=== PATIENT | female | born 1965 | race Caucasian/White ===

== ENCOUNTER 2018-08-18 13:43 | Emergency (ER) | payer OTHER ==
[~2018-08-18] VITALS: Ht 157.5 cm; Wt 71.5 kg
[~2018-08-18 13:43] MED LIST: BACTRIM DS TAB1 EACH PO; PREDNISONE50 MG PO
[2018-08-18] MEDS ORDERED: BLACK COHOSH40 M1 PO (14:04)
[2018-08-18] MEDS ORDERED: CLEOCIN HCL150 MG PO (15:30)
[2018-08-18] MEDS ORDERED: CLEOCIN HCL300 MG PO (15:33)
[2018-08-18] MEDS ORDERED: IBUPROFEN 600600 M1 PO (15:34)
[2018-08-18 16:00] VITALS: BP 130/60
== END 2018-08-18 16:01 | disposition home or self-care (01) ==
LOC: M.ERS 13:43
DX: K11.20 Sialoadenitis, unspecified (principal); J01.00 Acute maxillary sinusitis, unspecified; F17.200 Nicotine dependence, unspecified, uncomplicated; Z98.890 Other specified postprocedural states; Z91.09 Other allergy status, other than to drugs and biological substances

== ENCOUNTER 2019-07-01 13:13 | Inpatient (IN) | payer OTHER ==
[~2019-07-01] VITALS: Ht 157.5 cm; Wt 63.0 kg
--- NOTE | ~2019-07-01 | CON ---
[address] [address] CONSULTATION Name: SUZANNE THOMASN Room: [address] IN M.R.#: [id number] Admission: 07/01/19 Attend Phys: Cristiano Hedrick MD Discharge: Date of : 69 Report #: [id number] THIS REPORT FOR: //name// cc: JIMENA Hoyos family physician/PCP JIMENA Hoyos family physician/PCP ~ THIS REPORT FOR: //name// CC: Cristiano Hedrick [facility] physician/PCP Cristhian Segovia DO DICTATED BY: Lyly Cristobal [facility] REASON FOR CONSULTATION: Transaminitis and duodenitis. Please note at the time of this dictation, the patient was seen and physically examined by myself. HISTORY OF PRESENT ILLNESS: This is a 54-year-old female who presented to the Emergency Room with having some epigastric pain and also chest discomfort that started 2 hours prior to her arrival here, she states it is worse when she is not having a bowel movement. She does have issues with constipation and she has not had a bowel movement in about 4 days. She does not normally have a bowel movement, but every 1-1/2 weeks and has ongoing issues with her bowels. She denies taking any softeners, laxatives or any other interventions. She does state she has had some issues with some reflux, but does not take anything for that. She has never had an EGD or colonoscopy to evaluate that. She denies taking any NSAIDs on a regular basis. The patient states she has had some nausea, but no vomiting and just mainly her upper abdominal discomfort that she has had. ALLERGIES: CONTRAST DYE, POISON YO. MEDICATIONS: From home is none. PAST MEDICAL HISTORY: Contact dermatitis. PAST SURGICAL HISTORY: Tubal ligation and . FAMILY HISTORY: Negative for any GI or female cancers. SOCIAL HISTORY: She does smoke tobacco. Denies any alcohol use and she does smoke marijuana on a regular basis. REVIEW OF SYSTEMS: Twelve-point review of systems is essentially negative except what is mentioned in the HPI. PHYSICAL EXAMINATION: VITAL SIGNS: Temperature 36.6, pulse 87, respirations 18, blood pressure 96/50. HEART: Regular rate and rhythm. LUNGS: Diminished. ABDOMEN: Soft, positive bowel sounds in all 4 quadrants with epigastric tenderness noted to palpation. LABORATORY DATA: Hemoglobin on admission was 12.1, she is down to 9.2; white count is 6.8; platelets 234. GFR is 75. PT 10.7, INR is 1. Total bilirubin is 3, alkaline phosphatase 3251, ALT 158, AST is 115. Lipase is 77. CT shows a 1.1 cm mass lateral to the right lobe. No ductal dilatation noted of the gallbladder and it is contracted. There is circumferential wall thickening of the duodenum and the proximal jejunum. Chest CTA demonstrates innumerable indeterminate subpleural pulmonary nodules located within the lower and upper lobes and there are subcarinal lymph nodes that are noted with generalized thickening of the adrenal glands as well. IMPRESSION: 1. Chest pain. 2. Abdominal pain, epigastric. 3. Abnormal CT, circumferential wall thickening of the duodenum and jejunum. 4. Constipation. 5. Anemia. 6. History of regular THC use. 7. Tobacco use. PLAN: 1. EGD today. 2. Continue her Protonix. 3. Ultrasound of the abdomen to further evaluate her liver. 4. Labs, acute hepatitis panel, GGTP, AFP, JOI, ASMA, AMA. 5. The patient will likely need a colonoscopy during this hospitalization for further evaluation of her bowels. 6. Further recommendations to be made once Dr. Goodwin has reviewed the above and performed the EGD. Thank you for allowing us to participate in this patient's care. Please do not hesitate to call with any questions in regard to this consult. By: [id number] Goodwin MD /kylie
--- NOTE | ~2019-07-01 | EKG ---
[place] [address] ELECTROCARDIOGRAM REPORT Name: SUZANNE THOMAS MIMI Room: [facility]#: [id number] Admission: 07/01/19 Attend Phys: Discharge: Date of : 69 Date of Service: 07/01/19 1318 Report #: [id number] THIS REPORT FOR: cc: JIMENA - No family physician/PCP JIMENA - No family physician/PCP Roel Sevilla MD ~ THIS REPORT FOR: //name// [facility] ED Test Date: 2019-07-01 Test Time: 13:18:10 Pat Name: SUZANNE THOMAS Department: Room: Gender: F Audit Senior Associate: : 1965 Requested By: Suresh Varma Order Number: [id number] MD: Measurements Intervals [place] Rate: 109 P: 70 FL: 130 QRS: 76 QRSD: 79 T: 68 QT: 321 QTc: 433 Interpretive Statements Sinus tachycardia Probable anteroseptal infarct, old No previous ECG available for comparison [email or web address] By: 1318 1318 Epiphany Epiphany, /EPI
--- NOTE | ~2019-07-01 | EKG ---
[place] [address] ELECTROCARDIOGRAM REPORT Name: SUZANNE THOMAS MIMI Room: [address] ADM IN M.R.#: [id number] Admission: 07/01/19 Attend Phys: Cristiano Hedrick, Discharge: Date of : 69 Date of Service: 07/04/19 0538 Report #: [id number] THIS REPORT FOR: cc: JIMENA - No family physician/PCP FAM - No family physician/PCP Roel Sevilla MD ~ THIS REPORT FOR: //name// [facility] Test Date: 2019-07-04 Test Time: 05:38:47 Pat Name: SUZANNE THOMAS Department: Room: [address] Gender: F Bevel Polisher: JESSE : 1965 Requested By: Magdiel Denson Order Number: [id number] Reading MD: Measurements Intervals [place] Rate: 68 P: 72 NC: 165 QRS: 65 QRSD: 93 T: 37 QT: 411 QTc: 438 Interpretive Statements Sinus rhythm Low voltage, extremity leads Compared to ECG 07/01/2019 13:18:10 Low QRS voltage now present Sinus tachycardia no longer present [email or web address] By: 0538 0538 Epiphany Epiphany, /DALIA
--- NOTE | ~2019-07-01 | PROC ---
[address] [address] PROCEDURE REPORT Name: SUZANNE THOMAS Room: [address] IN M.R.#: [id number] Admission: 07/01/19 Attend Phys: Cristiano Hedrick MD Discharge: Date of : 69 Report #: [id number] THIS REPORT FOR: //name// cc: FAM - No family physician/PCP FAM - No family physician/PCP ~ THIS REPORT FOR: //name// For GI report, please see the Provation report in Perceptive 7 content. By: 1233Medical Records Staff BRIAN /SHABNAM
[~2019-07-01 13:13] MED LIST changes: +BLACK COHOSH40 M1 PO; +CLEOCIN HCL150 MG PO; +CLEOCIN HCL300 MG PO; +IBUPROFEN 600600 M1 PO
[2019-07-01 13:21] VITALS: BP 126/75
[2019-07-01 13:39] LABS: HEMOGLOBIN 12.1 gm/dL (12.0-15.0)
[2019-07-01 13:41] LABS: HEMATOCRIT 35.4 % (37.0-47.0); MCH 29.4 pg (26.0-34.0); MCHC 34.2 g/dL (28.0-37.0); MCV 86.1 fL (80.0-100.0); MPV 8.4 fl. (7.2-11.1); NUCLEATED RBCS 0 /100WBC; PLATELET COUNT* 298 thou/uL (150-400); RBC 4.11 mil/uL (4.20-5.00); RDW-CV 14.5 % (10.5-14.5); WBC 9.4 thou/uL (4.0-11.0)
[2019-07-01 13:49] LABS: ANION GAP 9 mmol/L (7-16); BUN 20 mg/dL (7-18); CALCIUM 8.8 mg/dL (8.5-10.1); CHLORIDE 98 mmol/L (98-107); CO2 27 mmol/L (21-32); CREATININE 0.9 mg/dL (0.6-1.3); GLUCOSE 121 mg/dL (70-99); SODIUM 134 mmol/L (136-145)
[2019-07-01 13:50] LABS: APTT 37.9 Seconds (25.0-31.3); PROTIME 10.7 Seconds (9.20-11.50)
[2019-07-01 14:03] LABS: ALBUMIN 2.3 g/dL (3.4-5.0); CK-MB MASS < 0.5 ng/mL (<0.5-3.6); LIPASE 77 U/L (73-393); MAGNESIUM 1.9 mg/dL (1.8-2.4); NT-PRO BRAIN NAT PEPTIDE 284 pg/mL (<300); SGOT 115 U/L (15-37); SGPT 158 U/L (30-65); TOTAL PROTEIN 7.6 g/dL (6.4-8.2)
[2019-07-01 14:09] LABS: ABSOLUTE LYMPHOCYTES 0.5 thou/uL (0.8-5.3); ABSOLUTE MONOCYTES 0.2 thou/uL (0.0-1.2); ABSOLUTE NEUTROPHILS 8.7 thou/uL (1.6-8.1); PLATELET ESTIMATE ADEQUATE
[2019-07-01 14:14] LABS: ALKALINE PHOSPHATASE 3251 U/L (46-116)
--- NOTE | 2019-07-01 14:46 | NUR ---
DANYA TURK ) NOTIFIED UPON PT RETURN FROM CT. PT CONNECTED TO MONITOR
[2019-07-01 19:45] VITALS: BP 95/45
[2019-07-01 20:20] VITALS: BP 83/41
[2019-07-01 22:10] VITALS: BP 85/41
[2019-07-02] VITALS: BP 91/48
[2019-07-02 04:00] VITALS: BP 96/50
[2019-07-02 06:03] LABS: URINE BLOOD 1+ (Negative); URINE CLARITY CLEAR; URINE COLOR YELLOW; URINE GLUCOSE-RANDOM NEGATIVE (Negative); URINE KETONES NEGATIVE (Negative); URINE LEUKOCYTES-REFLEX NEGATIVE (Negative); URINE NITRITE-REFLEX NEGATIVE (Negative); URINE PROTEIN TRACE (Negative)
[2019-07-02 06:06] LABS: ICTOTEST (BILI CONFIRMATORY) Negative (Negative); URINE BILIRUBIN 1+ (Negative)
--- NOTE | 2019-07-02 06:21 | NUR ---
PATIENT PARTIALLY PROGRESSING TOWARDS GOALS: PATIENT DENIES PAIN AND DISCOMFORT. URINE SAMPLE COLLECTED AND SENT TO LAB, REFER TO RESULTS. PATIENT ABLE TO SLEEP THROUGHOUT SHIFT. PATIENT NPO FOR GI CONSULT THIS AM. VERBALIZES UNDERSTANDING. CALL LIGHT WITHIN REACH
[2019-07-02 06:28] LABS: BACTERIA-REFLEX 1-9 Few /HPF (None Seen); CASTS None Seen /LPF (None Seen); CRYSTALS None Seen /LPF (None Seen); MUCUS None Seen strn/LPF (None Seen); SQUAMOUS 4-10 Moderate /LPF (0-3); URINE RBC 3-10 Few /HPF (0-2); URINE WBC-REFLEX 0-5 Rare /HPF (0-5)
[2019-07-02 06:40] LABS: AMP/METHAMP POSITIVE (Negative); BARBITURATES Negative (Negative); BENZODIAZEPINES Negative (Negative); COCAINE Negative (Negative); METHADONE Negative (Negative); OPIATES Negative (Negative); PCP Negative (Negative); THC Negative (Negative)
[2019-07-02 06:49] LABS: HEMATOCRIT 26.8 % (37.0-47.0); MCH 29.7 pg (26.0-34.0); MPV 8.7 fl. (7.2-11.1); NUCLEATED RBCS 0 /100WBC; WBC 6.8 thou/uL (4.0-11.0)
[2019-07-02 06:51] LABS: MCHC 34.2 g/dL (28.0-37.0); MCV 86.8 fL (80.0-100.0); PLATELET COUNT* 234 thou/uL (150-400); RBC 3.09 mil/uL (4.20-5.00); RDW-CV 14.6 % (10.5-14.5)
[2019-07-02 06:52] LABS: HEMOGLOBIN 9.2 gm/dL (12.0-15.0)
[2019-07-02 07:21] LABS: CALCIUM 7.4 mg/dL (8.5-10.1); CREATININE 0.8 mg/dL (0.6-1.3); POTASSIUM 4.1 mmol/L (3.5-5.1)
[2019-07-02 07:30] VITALS: BP 96/46
[2019-07-02 08:40] LABS: ABSOLUTE BASOPHILS 0.1 thou/uL (0.0-0.2); ABSOLUTE EOSINOPHILS 0.1 thou/uL (0.0-0.7); ABSOLUTE MONOCYTES 0.4 thou/uL (0.0-1.2); ABSOLUTE NEUTROPHILS 5.2 thou/uL (1.6-8.1); PLATELET ESTIMATE ADEQUATE
--- NOTE | 2019-07-02 10:57 | NUR ---
Pt out of the room, will f/u later
[2019-07-02 16:00] VITALS: BP 96/50
[2019-07-02 19:40] VITALS: BP 97/55
[2019-07-03 00:11] VITALS: BP 119/59
[2019-07-03 04:31] VITALS: BP 132/77
[2019-07-03 05:21] LABS: ABSOLUTE EOSINOPHILS 0.1 thou/uL (0.0-0.7); HEMOGLOBIN 9.4 gm/dL (12.0-15.0); WBC 5.8 thou/uL (4.0-11.0)
[2019-07-03 05:23] LABS: ABSOLUTE LYMPHOCYTES 3.2 thou/uL (0.8-5.3); ABSOLUTE MONOCYTES 0.4 thou/uL (0.0-1.2); ABSOLUTE NEUTROPHILS 2.1 thou/uL (1.6-8.1); BASOPHILS 0.3 %; EOSINOPHILS 1.4 %; HEMATOCRIT 27.2 % (37.0-47.0); LYMPHOCYTES 55.3 %; MCH 29.8 pg (26.0-34.0); MCHC 34.6 g/dL (28.0-37.0); MCV 86.2 fL (80.0-100.0); MONOCYTES 7.1 %; MPV 8.7 fl. (7.2-11.1); NUCLEATED RBCS 0 /100WBC; PLATELET COUNT* 264 thou/uL (150-400); POLYS 35.9 %; RBC 3.16 mil/uL (4.20-5.00); RDW-CV 14.7 % (10.5-14.5)
[2019-07-03 05:45] LABS: ALBUMIN 1.6 g/dL (3.4-5.0); CALCIUM 8.1 mg/dL (8.5-10.1); CREATININE 0.7 mg/dL (0.6-1.3); POTASSIUM 3.7 mmol/L (3.5-5.1); TOTAL BILIRUBIN 1.4 mg/dL (<0.1-1.0)
--- NOTE | 2019-07-03 06:21 | NUR ---
ASSUMED CARE OF PATIENT AT APPROX. 1930. ALERT AND ORIENTED X4. ASSESSMENT COMPLETED AND CHARTED. VSS ON ROOM AIR. FLUIDS AND ANTIBIOTICS INFUSED ORDERED. BOWEL PREP THROUGHOUT THE NIGHT WITH NOTED CLEAR STOOL THIS MORNING. NO COMPLAINTS THROUGHOUT THE NIGHT. PATIENT NEEDS ASSIT TO GET OUT OF BED BUT AMBULATES STEADILY TO THE BATHROOM AND BACK TO BED. HOURLY ROUNDS COMPLETED. CALL LIGHT IN REACH. WILL CONTINUE WITH PLAN OF CARE.
[2019-07-03 07:39] LABS: HEPATITIS B SURFACE AG Negative (Negative)
[2019-07-03 08:00] VITALS: BP 112/61
--- NOTE | 2019-07-03 10:06 | NUR ---
Pt out of room at [facility], will f/u later
--- NOTE | 2019-07-03 14:48 | NUR ---
Pt is A&O. Resides at home with her . is current with [facility] for [place], family home with while Pt is in the hospital. Pt is independent. No DME. No hx of HH or SNF. Positive drug screen for meth, Pt declined resources. Goal is home at dc. Pt states that she will have a liver biopsy tomorrow, possible dc to home later tomorrow. Following.
[2019-07-03 19:40] VITALS: BP 122/63
[2019-07-03 21:10] LABS: CA 125 113.6 U/mL (0.0-38.1)
[2019-07-04 00:32] VITALS: BP 103/45
[2019-07-04 04:28] VITALS: BP 122/68
[2019-07-04 05:10] LABS: ANA INTERPRETATION Positive (Negative)
--- NOTE | 2019-07-04 06:07 | NUR ---
ASSUMED CARE OF PATIENT AT APPROX 1930. ALERT AND ORIENTED X4. ASSESSMENT COMPLETED AND CHARTED. VSS ON ROOM AIR. PATIENT WAS UP WALKING THE UNIT THE LAST EVENING AND HAD A SHOWER. SUDDEN COMPLAINT OF RIGHT SHOULDER PAIN THAT RADIATES DOWN HER SIDE, ONSET AT APPROX 0245. GIVEN FENTANYL WITH PARTIAL RELIEF WITH PATIENT NOTED SLEEPING ON ROUNDS. PATIENT AGAIN CALLED OUT AT APPROX 0530 WITH COMPLAINT OF THE SAME PAIN, PAIN MEDICATION NOT AVAILABLE TO BE GIVEN AGAIN UNTIL 0700. EKG DONE AND FOUND TO BE WNL. REPOSITIONED PATIENT IN ATTEMPT TO ALLEVIATE PAIN UNTIL MEDICATION CAN BE GIVEN AGAIN. WILL ATTEMPT HEAT APPLICATION WELL. HOURLY ROUNDS COMPLETED. CALL LIGHT WITHIN REACH. WILL CONTINUE WITH PLAN OF CARE.
[2019-07-04 07:55] VITALS: BP 116/69
--- NOTE | 2019-07-04 09:19 | NUR ---
ASSUMED CARE OF PT AT 0730. PT RESTING IN BED. FAMILY AT BEDSIDE. A&0X4, DENIES ANY PAIN OR SHORTNESS OF BREATH AT THIS TIME. TRACING SR ON THE FREIGHT ENGINEER. ON RA SAT UPPER 90'S. PT UP AD ANGELO. IVF. PT NPO FOR LIVER BIOPSY THIS AM. PT GOAL FOR TODAY IS COMPLETE LIVER BIOPSY, IVF, PAIN MGMT AND DISCHARGE PLANNING TO HOME. AM ASSESSMENT CHARTED. MEDICATIONS PER MAR. PT REPOSITIONS SELF. HOURLY ROUNDING OBSERVED. BED IN LOW POSITION. CALL LIGHT WITHIN REACH. WILL CONTINUE PLAN OF CARE.
[2019-07-04 09:33] LABS: ABSOLUTE EOSINOPHILS 0.1 thou/uL (0.0-0.7); ABSOLUTE MONOCYTES 0.5 thou/uL (0.0-1.2); HEMOGLOBIN 9.7 gm/dL (12.0-15.0); MCHC 33.7 g/dL (28.0-37.0); RDW-CV 14.3 % (10.5-14.5); WBC 3.8 thou/uL (4.0-11.0)
[2019-07-04 09:35] LABS: ABSOLUTE NEUTROPHILS 1.1 thou/uL (1.6-8.1); BASOPHILS 1.3 %; EOSINOPHILS 2.9 %; HEMATOCRIT 28.7 % (37.0-47.0); LYMPHOCYTES 51.8 %; MCH 29.3 pg (26.0-34.0); MCV 86.8 fL (80.0-100.0); MONOCYTES 14.2 %; MPV 8.3 fl. (7.2-11.1); NUCLEATED RBCS 0 /100WBC; PLATELET COUNT* 319 thou/uL (150-400); POLYS 29.8 %
[2019-07-04 09:44] LABS: ALBUMIN 1.7 g/dL (3.4-5.0); CALCIUM 7.7 mg/dL (8.5-10.1); CREATININE 0.8 mg/dL (0.6-1.3); POTASSIUM 4.1 mmol/L (3.5-5.1); TOTAL BILIRUBIN 0.8 mg/dL (<0.1-1.0); TOTAL PROTEIN 6.1 g/dL (6.4-8.2)
[2019-07-04 09:45] LABS: PREALBUMIN 9.6 mg/dL (18.0-35.7)
[2019-07-04 10:10] VITALS: BP 116/69
[2019-07-04 16:00] VITALS: BP 142/70
--- NOTE | 2019-07-04 17:47 | NUR ---
NO ACUTE CHANGES THROUGHOUT SHIFT. REFER TO CHARTING. PT HAD LIVER BIOPSY TODAY-TOLERATED WELL. PT COMPLAINED OF PAIN TO RIGHT SHOULDER X 1 THIS AFTERNOON-TREATED WITH PRN OXYCODONE WITH RELIEF. PT MADE MED SURG STATUS. ON RA SAT UPPER 90'S. VISITORS AT BEDSIDE THROUGHOUT SHIFT. PT UP AD ANGELO IN ROOM. IVF. PT PROGRESSING TOWARDS GOALS. PROBABLE DISCHARGE HOME TOMORROW 07/05. MEDICATIONS PER JUL. PT REPOSITIONS SELF. HOURLY ROUNDING OBSERVED. BED IN LOW POSITION. CALL LIGHT WITHIN REACH. WILL CONTINUE PLAN OF CARE.
[2019-07-04 18:31] VITALS: BP 142/70
[2019-07-05 03:57] LABS: ALBUMIN 1.8 g/dL (3.4-5.0); CALCIUM 8.3 mg/dL (8.5-10.1); CREATININE 0.8 mg/dL (0.6-1.3); TOTAL PROTEIN 6.5 g/dL (6.4-8.2)
[2019-07-05 04:07] LABS: MPV 8.2 fl. (7.2-11.1); NUCLEATED RBCS 0 /100WBC
[2019-07-05 04:09] LABS: ABSOLUTE EOSINOPHILS 0.1 thou/uL (0.0-0.7); ABSOLUTE LYMPHOCYTES 1.9 thou/uL (0.8-5.3); ABSOLUTE MONOCYTES 0.4 thou/uL (0.0-1.2); ABSOLUTE NEUTROPHILS 1.7 thou/uL (1.6-8.1); BASOPHILS 0.1 %; EOSINOPHILS 3.1 %; HEMATOCRIT 28.9 % (37.0-47.0); LYMPHOCYTES 45.6 %; MCH 29.9 pg (26.0-34.0); MCHC 34.5 g/dL (28.0-37.0); MCV 86.6 fL (80.0-100.0); MONOCYTES 10.3 %; PLATELET COUNT* 337 thou/uL (150-400); POLYS 40.9 %; RBC 3.34 mil/uL (4.20-5.00); RDW-CV 14.3 % (10.5-14.5); WBC 4.3 thou/uL (4.0-11.0)
--- NOTE | 2019-07-05 05:32 | NUR ---
TRANSFER FROM [facility] AT 2129. SHE DID HAVE SOME SHOULDER PAIN AND RECEIVED PAIN MEDS UPON ASSESSMENT. SHE SLEPT THROUGH NIGHT. SEPTEMBER D/C TODAY.
[2019-07-05 08:20] VITALS: BP 140/76
[2019-07-05] MEDS ORDERED: AUGMENTIN 875-1 EACH PO (09:32)
[2019-07-05] MEDS ORDERED: OXYCODONE HCL 55 MG PO (09:32)
--- NOTE | 2019-07-05 11:22 | NUR ---
PT DISCHARGED ABOUT 1110 TO HOME WITH A FRIEND. IV OUT. PAIN CONTROLLED. PAPER SCRIPT AND CARE NOTES GIVEN. PERSONAL ITEMS SENT WITH PT. PT STABLE.
== END 2019-07-05 11:27 | disposition home or self-care (01) | DRG 437 ==
LOC: M.ERS 13:13 → M.TBA-ER 15:48 → M.2W 15:48 → M.ORTHSURG 07-04 21:30
PROVIDERS: Family Medicine; Internal Medicine Gastroenterology; Nurse Practitioner Adult Health; Nurse Practitioner Family; ADMIT Internal Medicine
PROC: 0DJ08ZZ Inspection of Upper Intestinal Tract, Via Natural or Artificial Opening Endoscopic (ICD-10-PCS; principal; 2019-07-02)
PROC: 0DJD8ZZ Inspection of Lower Intestinal Tract, Via Natural or Artificial Opening Endoscopic (ICD-10-PCS; 2019-07-03)
PROC: 0FB13ZX Excision of Right Lobe Liver, Percutaneous Approach, Diagnostic (ICD-10-PCS; 2019-07-04)
DX: C22.8 Malignant neoplasm of liver, primary, unspecified as to type (principal); F32.9 Major depressive disorder, single episode, unspecified; K29.80 Duodenitis without bleeding; K59.00 Constipation, unspecified; D64.9 Anemia, unspecified; F17.210 Nicotine dependence, cigarettes, uncomplicated; R59.1 Generalized enlarged lymph nodes; R91.1 Solitary pulmonary nodule; K76.9 Liver disease, unspecified; K44.9 Diaphragmatic hernia without obstruction or gangrene; K64.8 Other hemorrhoids; K72.90 Hepatic failure, unspecified without coma; D50.9 Iron deficiency anemia, unspecified; Z98.891 History of uterine scar from previous surgery; Z79.899 Other long term (current) drug therapy; Z91.048 Other nonmedicinal substance allergy status; Z91.041 Radiographic dye allergy status

== ENCOUNTER 2020-02-27 16:03 | Emergency (ER) | payer OTHER ==
[~2020-02-27] VITALS: Ht 157.5 cm; Wt 54.4 kg
[~2020-02-27 16:03] MED LIST changes: +AUGMENTIN 875-1 EACH PO; +OXYCODONE HCL 55 MG PO
[2020-02-27] MEDS ORDERED: HYDROXYZINE PAM25 M1 PO (16:36)
[2020-02-27] MEDS ORDERED: PREDNISONE 10 M10 M1 PO (16:36)
[2020-02-27] MEDS ORDERED: DIPHENHIST50 MG PO (16:36)
[2020-02-27 17:09] VITALS: BP 133/78
== END 2020-02-27 17:10 | disposition home or self-care (01) ==
LOC: M.ERS 16:03
DX: L25.9 Unspecified contact dermatitis, unspecified cause (principal); Z98.51 Tubal ligation status; Z98.890 Other specified postprocedural states; Z91.041 Radiographic dye allergy status; Z88.8 Allergy status to other drugs, medicaments and biological substances